=== PATIENT | male | born 1975 | race Hispanic/Latino ===

== ENCOUNTER 2017-07-25 09:41 | Emergency (ER) | payer BC ==
[2017-07-25 09:45] VITALS: BP 139/81; PULSE 87; RESP 18; TEMP 98.1; O2SAT 99; BMI 25.0
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
== END 2017-07-25 10:43 | disposition home or self-care (01) ==
LOC: H.ER 09:41
DX: S01.81XA Laceration without foreign body of other part of head, initial encounter (principal); S09.93XA Unspecified injury of face, initial encounter; Y04.0XXA Assault by unarmed brawl or fight, initial encounter; Y92.89 Other specified places as the place of occurrence of the external cause